=== PATIENT | male | born 1945 | race Asian ===

== ENCOUNTER 2021-03-17 18:16 | Inpatient (IN) | payer MEDICARE ==
[~2021-03-17] VITALS: Ht 175.3 cm; Wt 60.8 kg
[2021-03-17 19:04] LABS: BASOPHILS % 0.3 % (0.0-1.0); EOSINOPHILS % 0.1 % (0.0-6.0); HEMATOCRIT 40.2 % (38.2-49.6); HEMOGLOBIN 13.2 g/dL (14.0-18.0); LYMPHOCYTES # (AUTO) 1.2 (1.0-3.2); LYMPHOCYTES % 7.8 % (18.0-39.1); MEAN CORPUSCULAR HEMOGLOBIN 30.1 pg (28-32); MEAN CORPUSCULAR HGB CONC 32.8 g/dL (31-35); MEAN CORPUSCULAR VOLUME 91.6 fL (81-99); MONOCYTES # (AUTO) 1.2 (0.2-0.8); MONOCYTES % 7.7 % (4.4-11.3); NEUTROPHILS # (AUTO) 12.7 (2.1-6.9); NEUTROPHILS % 83.1 % (38.7-80.0); PLATELET COUNT 268 x10e3/uL (140-360); RED BLOOD COUNT 4.39 x10e6/uL (4.3-5.7); RED CELL DISTRIBUTION WIDTH 13.7 % (11.7-14.4)
[2021-03-17 19:17] LABS: CLARITY,URINE SL CLOUDY (CLEAR); COLOR,URINE YELLOW (YELLOW); KETONES,URINE TRACE (NEGATIVE); LEUKOCYTE ESTERASE ,URINE TRACE (NEGATIVE); NITRITE,URINE NEGATIVE (NEGATIVE); PROTEIN,URINE DIPSTICK 2+ (NEGATIVE); URINE UROBILINOGEN 2 mg/dL (0.2 - 1)
[2021-03-17 19:24] LABS: ALBUMIN 3.1 g/dL (3.5-5.0); ALBUMIN/GLOBULIN RATIO 0.7 (0.8-2.0); ANION GAP 18.2 mmol/L (8-16); CALCIUM 9.6 mg/dL (8.4-10.2); CREATININE, SERUM 1.58 mg/dL (0.72-1.25); POTASSIUM 4.2 mmol/L (3.5-5.1)
[2021-03-17 19:31] LABS: CREATINE KINASE MB 0.5 ng/mL (0-5.0)
[2021-03-17 19:43] LABS: BACTERIA,URINE MODERATE /HPF; EPITHELIAL CELLS,URINE MODERATE /LPF; MUCUS,URINE FEW (RARE); RBC,URINE 0-5 /HPF (0-5); TRANSITIONAL EPI CELLS,URINE FEW; WBC,URINE (MAN) 21-50 /HPF (0-5)
[2021-03-17] MEDS ORDERED: SODIUM CHLORIDE 0.9% 1000ML 1,000 ML IV STA (20:05)
[2021-03-17] MEDS ORDERED: CEFEPIME 1 GM in SODIUM CHLORIDE 0.9% 50ML 50 ML IV ONE (20:15)
[2021-03-17] MEDS ORDERED: IOPAMIDOL 370 MG/ML 200 ML INFUS..BTL INJ ONE (20:24)
[2021-03-17] MEDS ORDERED: SODIUM CHLORIDE 0.9% 50ML 50 ML ONE (20:24)
[2021-03-17] MEDS ORDERED: HYDROCODONE/APAP 7.5MG-325MG 1 EA TAB PO PRN (20:30)
[2021-03-17] MEDS: SODIUM CHLORIDE 0.9% 1000ML 1,000 ML IV SCH (22:43)
[2021-03-18] MEDS ORDERED: METHYLPREDNISOLONE SOD SUCC 125 MG/2ML VIAL IV ONE (00:30)
[2021-03-18] MEDS ORDERED: ALBUTEROL/IPRATROPIUM 3 ML NEB NEB ONE (00:30)
[2021-03-18] MEDS ORDERED: Vancomycin IV 1 GM in SODIUM CHLORIDE 0.9% 250ML 250 ML IV ONE (00:30)
[2021-03-18] MEDS ORDERED: ACETAMINOPHEN 325 MG TAB ONE (00:41)
[2021-03-18 01:12] LABS: ABG PCO2 33 mmHg (35-45)
[2021-03-18 01:13] LABS: ABG HCO3 20 mmol/L (22-26); ABG PO2 122 mmHg (80-105); ABG TCO2 21
[2021-03-18] MEDS ORDERED: ALBUTEROL/IPRATROPIUM 3 ML NEB NEB PRN (01:15)
[2021-03-18] MEDS ORDERED: ACETAMINOPHEN 325 MG TAB PO PRN (01:15)
[2021-03-18] MEDS ORDERED: DOCUSATE SODIUM 100 MG CAP PO PRN (01:15)
[2021-03-18] MEDS ORDERED: SIMETHICONE 80 MG CHEW PO PRN (01:15)
[2021-03-18] MEDS ORDERED: MELATONIN 5 MG TABLET PO PRN (01:15)
[2021-03-18] MEDS ORDERED: DIPHENHYDRAMINE HCL 25 MG CAP PO PRN (01:15)
[2021-03-18] MEDS ORDERED: BENZONATATE 100 MG CAP PO PRN (01:15)
[2021-03-18] MEDS ORDERED: HYDRALAZINE HCL 20 MG/ML VIAL IV PRN (01:15)
[2021-03-18] MEDS ORDERED: LIDOCAINE 4% PATCH TP PRN (01:15)
[2021-03-18] MEDS ORDERED: POTASSIUM CHLORIDE 20 MEQ TAB CR PO PRN (01:15)
[2021-03-18] MEDS ORDERED: DEXTROSE 50% SYRINGE 50 ML IV PRN ×2 (01:15→15:00)
[2021-03-18] MEDS ORDERED: ONDANSETRON HCL INJ 2MG/ML 2ML 2 MG/ML VIAL IV PRN (01:15)
[2021-03-18 03:54] LABS: MAGNESIUM 1.7 MG/DL (1.3-2.1); PHOSPHORUS 2.3 MG/DL (2.3-4.7)
[2021-03-18 04:06] LABS: CREATINE KINASE MB 0.8 ng/mL (0-5.0)
[2021-03-18 04:14] LABS: THYROID STIMULATING HORMONE 0.981 uIU/mL (0.350-4.940)
[2021-03-18] MEDS ORDERED: HYDROCODONE/APAP 7.5MG-325MG 1 EA TAB PO PRN (06:45)
[2021-03-18 07:07] LABS: BASOPHILS % 0.2 % (0.0-1.0); HEMATOCRIT 34.8 % (38.2-49.6); HEMOGLOBIN 11.2 g/dL (14.0-18.0); LYMPHOCYTES # (AUTO) 0.5 (1.0-3.2); LYMPHOCYTES % 3.5 % (18.0-39.1); MEAN CORPUSCULAR HEMOGLOBIN 29.9 pg (28-32); MEAN CORPUSCULAR HGB CONC 32.2 g/dL (31-35); MEAN CORPUSCULAR VOLUME 92.8 fL (81-99); MONOCYTES # (AUTO) 0.2 (0.2-0.8); MONOCYTES % 1.7 % (4.4-11.3); NEUTROPHILS # (AUTO) 12.9 (2.1-6.9); NEUTROPHILS % 93.4 % (38.7-80.0); PLATELET COUNT 251 x10e3/uL (140-360); RED BLOOD COUNT 3.75 x10e6/uL (4.3-5.7); RED CELL DISTRIBUTION WIDTH 14.2 % (11.7-14.4)
[2021-03-18 07:30] LABS: ALBUMIN 2.5 g/dL (3.5-5.0); ALBUMIN/GLOBULIN RATIO 0.6 (0.8-2.0); ANION GAP 14.6 mmol/L (8-16); CALCIUM 8.8 mg/dL (8.4-10.2); CREATININE, SERUM 1.07 mg/dL (0.72-1.25); POTASSIUM 4.6 mmol/L (3.5-5.1)
[2021-03-18 07:38] LABS: CREATINE KINASE 36 IU/L (30-200)
[2021-03-18 07:46] LABS: LYMPHOCYTES % (MANUAL) 4 % (19-48); MONOCYTES % (MANUAL) 2 % (3.4-9.0); NEUTROPHILS % (MANUAL) 94 % (40-74); NUCLEATED RED BLOOD CELLS 8; PLATELET ESTIMATE ADEQUATE; PLATELET MORPHOLOGY COMMENT NORMAL; RBC MORPHOLOGY COMMENT NORMAL
[2021-03-18] MEDS ORDERED: SPIRONOLACTONE25 MG PO (09:04)
[2021-03-18] MEDS ORDERED: EZETIMIBE10 MG PO (09:04)
[2021-03-18] MEDS ORDERED: LISINOPRIL-HCT1 EAC2 PO (09:04)
[2021-03-18] MEDS ORDERED: CLOPIDOGREL75 MG PO (09:04)
[2021-03-18] MEDS ORDERED: ATORVASTATIN CA40 MG PO (09:04)
[2021-03-18] MEDS: PANTOPRAZOLE SOD 40 MG TABEC PO SCH (09:29)
[2021-03-18] MEDS: CEFEPIME 1 GM in SODIUM CHLORIDE 0.9% 50ML 50 ML IV SCH ×2 (09:29→21:23)
[2021-03-18] MEDS: SODIUM CHLORIDE 0.9% 1000ML 1,000 ML IV SCH (10:44)
[2021-03-18 15:01] LABS: CREATINE KINASE MB 1.2 ng/mL (0-5.0)
[2021-03-18] MEDS ORDERED: METFORMIN HCL1000 MG PO (15:12)
[2021-03-18] MEDS ORDERED: FLOMAX0.4 MG PO (15:12)
[2021-03-18] MEDS ORDERED: LISINOPRIL2.5 MG PO (15:12)
[2021-03-18] MEDS ORDERED: CARVEDILOL3.125 MG PO (15:12)
[2021-03-18] MEDS: ENOXAPARIN SOD INJ 40 MG/0.4 ML SYR SC SCH (18:03)
[2021-03-19] MEDS ORDERED: SODIUM CHLORIDE 0.9% 1000ML 1,000 ML ONE (00:36)
[2021-03-19 06:31] LABS: BASOPHILS % 0.2 % (0.0-1.0); HEMATOCRIT 31.7 % (38.2-49.6); HEMOGLOBIN 10.3 g/dL (14.0-18.0); LYMPHOCYTES # (AUTO) 0.8 (1.0-3.2); LYMPHOCYTES % 4.6 % (18.0-39.1); MEAN CORPUSCULAR HEMOGLOBIN 29.7 pg (28-32); MEAN CORPUSCULAR HGB CONC 32.5 g/dL (31-35); MEAN CORPUSCULAR VOLUME 91.4 fL (81-99); MONOCYTES % 5.7 % (4.4-11.3); NEUTROPHILS # (AUTO) 14.9 (2.1-6.9); NEUTROPHILS % 88.7 % (38.7-80.0); PLATELET COUNT 257 x10e3/uL (140-360); RED BLOOD COUNT 3.47 x10e6/uL (4.3-5.7); RED CELL DISTRIBUTION WIDTH 14.5 % (11.7-14.4)
[2021-03-19 07:00] LABS: ALBUMIN 2.2 g/dL (3.5-5.0); ALBUMIN/GLOBULIN RATIO 0.6 (0.8-2.0); ANION GAP 15.5 mmol/L (8-16); CALCIUM 8.5 mg/dL (8.4-10.2); CREATININE, SERUM 0.9 mg/dL (0.72-1.25); POTASSIUM 4.5 mmol/L (3.5-5.1)
[2021-03-19] MEDS: PANTOPRAZOLE SOD 40 MG TABEC PO SCH ×2 (08:07→17:51)
[2021-03-19] MEDS: SPIRONOLACTONE 25 MG TAB PO SCH ×2 (08:08→17:51)
[2021-03-19] MEDS: TAMSULOSIN HCL 0.4 MG CAP PO SCH ×2 (08:09→17:51)
[2021-03-19] MEDS: EZETIMIBE 10 MG TAB PO SCH ×2 (08:10→17:52)
[2021-03-19] MEDS: CLOPIDOGREL BISULFATE 75 MG TAB PO SCH ×2 (08:10→17:52)
[2021-03-19] MEDS: METFORMIN HCL 500 MG TAB CR PO SCH ×2 (08:10→17:51)
[2021-03-19] MEDS ORDERED: DEXTROSE 50% SYRINGE 50 ML IV PRN (08:15)
[2021-03-19] MEDS ORDERED: METFORMIN HCL 500 MG PO SCH (09:00)
[2021-03-19] MEDS: CEFEPIME 1 GM in SODIUM CHLORIDE 0.9% 50ML 50 ML IV SCH ×2 (09:45→21:51)
[2021-03-19] MEDS: VARENICLINE 1 MG TAB PO SCH (11:00)
[2021-03-19] MEDS ORDERED: METHYLPREDNISOLONE SOD SUCC 40 MG/ML VIAL 1ML IV ONE (11:30)
[2021-03-19] MEDS: INSULIN LISPRO 100 UNIT/1 ML 3ML VIAL SQ SCH ×3 (11:49→17:54)
[2021-03-19] MEDS: ACETAMINOPHEN 325 MG TAB PO SCH ×3 (12:00→23:01)
[2021-03-19] MEDS ORDERED: IMODIUM A-1 MG/7.5 M PO (17:05)
[2021-03-19 17:10] VITALS: BP 113/58
[2021-03-19 17:18] VITALS: BP 113/58
[2021-03-19] MEDS: ENOXAPARIN SOD INJ 40 MG/0.4 ML SYR SC SCH (17:36)
[2021-03-19 20:00] VITALS: BP 123/71
[2021-03-20] VITALS (9 sets, daily range): BP systolic 89–137; BP diastolic 50–77
[2021-03-20 04:51] LABS: BASOPHILS % 0.2 % (0.0-1.0); EOSINOPHILS % 0.2 % (0.0-6.0); HEMATOCRIT 31.2 % (38.2-49.6); HEMOGLOBIN 10.5 g/dL (14.0-18.0); LYMPHOCYTES # (AUTO) 1.8 (1.0-3.2); LYMPHOCYTES % 13.9 % (18.0-39.1); MEAN CORPUSCULAR HEMOGLOBIN 30.3 pg (28-32); MEAN CORPUSCULAR HGB CONC 33.7 g/dL (31-35); MEAN CORPUSCULAR VOLUME 89.9 fL (81-99); MONOCYTES # (AUTO) 1.1 (0.2-0.8); MONOCYTES % 8.9 % (4.4-11.3); NEUTROPHILS # (AUTO) 9.7 (2.1-6.9); PLATELET COUNT 275 x10e3/uL (140-360); RED BLOOD COUNT 3.47 x10e6/uL (4.3-5.7); RED CELL DISTRIBUTION WIDTH 14.6 % (11.7-14.4)
[2021-03-20 05:07] LABS: ANION GAP 12.9 mmol/L (8-16); CALCIUM 8.4 mg/dL (8.4-10.2); CREATININE, SERUM 0.8 mg/dL (0.72-1.25); POTASSIUM 3.9 mmol/L (3.5-5.1)
[2021-03-20] MEDS: ACETAMINOPHEN 325 MG TAB PO SCH ×3 (06:00→16:56)
[2021-03-20] MEDS: INSULIN LISPRO 100 UNIT/1 ML 3ML VIAL SQ SCH ×4 (07:30→21:00)
[2021-03-20] MEDS: CLOPIDOGREL BISULFATE 75 MG TAB PO SCH (08:12)
[2021-03-20] MEDS: METFORMIN HCL 500 MG TAB CR PO SCH (08:12)
[2021-03-20] MEDS: SPIRONOLACTONE 25 MG TAB PO SCH (08:12)
[2021-03-20] MEDS: VARENICLINE 1 MG TAB PO SCH (08:12)
[2021-03-20] MEDS: EZETIMIBE 10 MG TAB PO SCH (08:12)
[2021-03-20] MEDS: TAMSULOSIN HCL 0.4 MG CAP PO SCH (08:12)
[2021-03-20] MEDS: PANTOPRAZOLE SOD 40 MG TABEC PO SCH (08:12)
[2021-03-20] MEDS: CEFEPIME 1 GM in SODIUM CHLORIDE 0.9% 50ML 50 ML IV SCH ×2 (08:14→20:42)
[2021-03-20] MEDS: ENOXAPARIN SOD INJ 40 MG/0.4 ML SYR SC SCH (16:55)
[2021-03-21 00:31] VITALS: BP 120/63
[2021-03-21 04:00] VITALS: BP 128/62
[2021-03-21 04:49] LABS: BASOPHILS % 0.3 % (0.0-1.0); EOSINOPHILS # (AUTO) 0.1 (0.0-0.4); EOSINOPHILS % 1.1 % (0.0-6.0); HEMATOCRIT 32.9 % (38.2-49.6); HEMOGLOBIN 10.7 g/dL (14.0-18.0); LYMPHOCYTES # (AUTO) 2.2 (1.0-3.2); LYMPHOCYTES % 23.6 % (18.0-39.1); MEAN CORPUSCULAR HEMOGLOBIN 29.6 pg (28-32); MEAN CORPUSCULAR HGB CONC 32.5 g/dL (31-35); MEAN CORPUSCULAR VOLUME 91.1 fL (81-99); MONOCYTES # (AUTO) 0.9 (0.2-0.8); NEUTROPHILS # (AUTO) 5.8 (2.1-6.9); NEUTROPHILS % 62.4 % (38.7-80.0); PLATELET COUNT 298 x10e3/uL (140-360); RED BLOOD COUNT 3.61 x10e6/uL (4.3-5.7); RED CELL DISTRIBUTION WIDTH 14.5 % (11.7-14.4)
[2021-03-21 05:23] LABS: ALBUMIN 2.2 g/dL (3.5-5.0); ALBUMIN/GLOBULIN RATIO 0.6 (0.8-2.0); ANION GAP 13.6 mmol/L (8-16); CALCIUM 8.4 mg/dL (8.4-10.2); CREATININE, SERUM 0.73 mg/dL (0.72-1.25); POTASSIUM 3.6 mmol/L (3.5-5.1)
[2021-03-21] MEDS: ACETAMINOPHEN 325 MG TAB PO SCH ×3 (05:44→11:27)
[2021-03-21] MEDS: INSULIN LISPRO 100 UNIT/1 ML 3ML VIAL SQ SCH ×2 (07:30→11:30)
[2021-03-21 07:36] VITALS: BP 129/68
[2021-03-21 08:10] VITALS: BP 129/68
[2021-03-21] MEDS: VARENICLINE 1 MG TAB PO SCH (08:48)
[2021-03-21] MEDS: CLOPIDOGREL BISULFATE 75 MG TAB PO SCH (08:48)
[2021-03-21] MEDS: TAMSULOSIN HCL 0.4 MG CAP PO SCH (08:48)
[2021-03-21] MEDS: CEFEPIME 1 GM in SODIUM CHLORIDE 0.9% 50ML 50 ML IV SCH (08:48)
[2021-03-21] MEDS: EZETIMIBE 10 MG TAB PO SCH (08:48)
[2021-03-21] MEDS: METFORMIN HCL 500 MG TAB CR PO SCH (08:48)
[2021-03-21] MEDS: SPIRONOLACTONE 25 MG TAB PO SCH (08:48)
[2021-03-21] MEDS ORDERED: CHANTIX1 MG PO (10:22)
[2021-03-21 11:38] VITALS: BP 144/90
== END 2021-03-21 17:00 | disposition home or self-care (01) | DRG 193 ==
LOC: EDSEX 18:16 → ER 20:05 → ERHOLD 23:50 → IMCU 03-19 15:32
PROVIDERS: ADMIT Internal Medicine; ATTEND Internal Medicine
DX: J18.9 Pneumonia, unspecified organism (principal); J80 Acute respiratory distress syndrome; N39.0 Urinary tract infection, site not specified; I10 Essential (primary) hypertension; E11.9 Type 2 diabetes mellitus without complications; F17.200 Nicotine dependence, unspecified, uncomplicated; I25.10 Atherosclerotic heart disease of native coronary artery without angina pectoris; Z95.5 Presence of coronary angioplasty implant and graft; J43.9 Emphysema, unspecified; Z20.822 Contact with and (suspected) exposure to COVID-19
CPT/HCPCS: 36415; 36600; 71045; 71046; 71260; 74177; 80048; 80053; 81001; 82550; 82553; 82805; 82948; 83605; 83735; 84100; 84443; 84484; 85025; 87040; 87086; 93005; 94640; 94660; 99285; J0456; J0692; J1650; J2920; J2930; J3370; J7030; J7050; Q9967; U0002

== ENCOUNTER → 2021-05-29 | Outpatient (CLI) | payer MEDICARE ==
[~2021-05-29] MED LIST: ATORVASTATIN CA40 MG PO; CARVEDILOL3.125 MG PO; CHANTIX1 MG PO; CLOPIDOGREL75 MG PO; EZETIMIBE10 MG PO; FLOMAX0.4 MG PO; IMODIUM A-1 MG/7.5 M PO; LISINOPRIL-HCT1 EAC2 PO; LISINOPRIL2.5 MG PO; METFORMIN HCL1000 MG PO; SPIRONOLACTONE25 MG PO
== END ==
LOC: CT 09:35
PROVIDERS: ATTEND Internal Medicine
DX: Z87.01 Personal history of pneumonia (recurrent) (principal)
CPT/HCPCS: 71250